=== PATIENT | female | born 1950 | race Caucasian/White ===

== ENCOUNTER 2017-08-03 13:23 | Emergency (ER) | payer OTHER, MEDICAID, MEDICARE ==
[2017-08-03] MEDS ORDERED: SODIUM CHLOR 0.9% 1000 ML INJ 1,000 ML IV (13:45)
[2017-08-03 14:27] LABS: AUTOMATED NEUTROPHIL # 3.6 TH/MM3 (1.8-7.7); BASOPHIL # 0.1 TH/MM3 (0-0.2); BASOPHIL % 0.7 % (0.0-2.0); EOSINOPHIL # 0.1 TH/MM3 (0-0.4); EOSINOPHIL % 1.2 % (0.0-4.0); HEMATOCRIT 39.5 % (35.0-46.0); HEMO FLAGS DIFF FINAL; HEMOGLOBIN 12.8 GM/DL (11.6-15.3); LYMPH % 34.4 % (9.0-44.0); LYMPHOCYTE # 2.5 TH/MM3 (1.0-4.8); MEAN CELL VOLUME 87.3 FL (80.0-100.0); MEAN CORPUSCULAR HEMOGLOBIN 28.2 PG (27.0-34.0); MEAN CORPUSCULAR HGB CONC 32.3 % (32.0-36.0); MEAN PLATELET VOLUME 9.8 FL (7.0-11.0); NEUT % 49.7 % (16.0-70.0); PLATELET COUNT 197 TH/MM3 (150-450); RED BLOOD COUNT 4.53 MIL/MM3 (4.00-5.30); RED CELL DISTRIBUTION WIDTH 17.8 % (11.6-17.2); WHITE BLOOD COUNT 7.3 TH/MM3 (4.0-11.0)
[2017-08-03] MEDS: SODIUM CHLORID 0.9% 500 ML INJ 500 ML IV ×3 (14:35→17:36)
[2017-08-03 14:38] LABS: APTT (PATIENT) 24.5 SEC (24.3-30.1); PROTHROMBIN TIME - PATIENT 10.5 SEC (9.8-11.6)
[2017-08-03 14:43] LABS: ALBUMIN 3.3 GM/DL (3.4-5.0); ALT (GPT) 15 U/L (10-53); ANION GAP 7 MEQ/L (5-15); AST (GOT) 11 U/L (15-37); BICARBONATE 25.7 MEQ/L (21.0-32.0); BLOOD UREA NITROGEN 21 MG/DL (7-18); CALCIUM 8.9 MG/DL (8.5-10.1); CHLORIDE 107 MEQ/L (98-107); CREATININE 1.23 MG/DL (0.50-1.00); GLOMERULAR FILTRATION RATE 43 ML/MIN (>89); GLUCOSE,RANDOM 97 MG/DL (74-106); MAGNESIUM 2.1 MG/DL (1.5-2.5); PHOSPHORUS 2.6 MG/DL (2.5-4.9); POTASSIUM 3.4 MEQ/L (3.5-5.1); SODIUM (NA) 140 MEQ/L (136-145)
[2017-08-03 14:44] LABS: LACTIC ACID SEPSIS PROTOCOL 2.5 mmol/L (0.4-2.0)
[2017-08-03 14:48] LABS: ALKALINE PHOSPHATASE 97 U/L (45-117); TOTAL BILIRUBIN ADULT 0.3 MG/DL (0.2-1.0); TOTAL PROTEIN 7.1 GM/DL (6.4-8.2); TROPONIN I LESS THAN 0.02 NG/ML (0.02-0.05)
[2017-08-03 14:51] LABS: CREATINE KINASE 62 U/L (26-192)
[2017-08-03 15:18] LABS: B-TYPE NATRIURETIC PEPTIDE 47 PG/ML (0-100)
[2017-08-03] MEDS: metroNIDAZOLE 500 MG INJ 100 ML IV (15:50)
[2017-08-03 16:20] LABS: LACTIC ACID GHOST NOT REPORTABLE
[2017-08-03 16:31] LABS: BILIRUBIN, URINE NEG (NEG); BLOOD, URINE NEG (NEG); GLUCOSE,URINE NEG (NEG); HYALINE CAST, URINE 8 /lpf (RARE); KETONE, URINE NEG (NEG); NITRITE,URINE NEG (NEG); SQUAMOUS EPITHELIAL CELL URINE 5 /hpf (0-5); TRANSITIONAL EPI CELLS, URINE <1 /hpf; URINE COLOR YELLOW (YELLW/STRAW); URINE LEUKOCYTE ESTERASE MOD (NEG)
[2017-08-03 16:32] LABS: BACTERIA, URINE RARE /hpf; COMMENT (UR) CATH-CULTURE IND; CULTURE IF INDICATED CATH CULTURE IND
[2017-08-03] MEDS: VANCOMYCIN INJ 1,000 MG in SODIUM CHLOR 0.9% 250 ML INJ 250 ML IV (16:56)
[2017-08-03] MEDS: AZTREONAM INJ 2,000 MG in SODIUM CHLORIDE 0.9% INJ 100 ML IV (17:46)
[2017-08-03] MEDS: SODIUM CHLOR 0.9% 1000 ML INJ 1,000 ML IV (17:59)
[2017-08-03] MEDS ORDERED: LACTULOSE SYRUP 20 GM/30 ML CUP PO (18:00)
[2017-08-03] MEDS ORDERED: SENNOSIDES 8.6 MG TAB PO (18:00)
[2017-08-03] MEDS ORDERED: BISACODYL 10 MG SUPP RECTAL (18:00)
[2017-08-03] MEDS ORDERED: NALOXONE HCL 0.4 MG/ML AMP IV PUSH (18:00)
[2017-08-03] MEDS ORDERED: ACETAMINOPHEN 325 MG TAB PO (18:00)
[2017-08-03] MEDS ORDERED: MAGNESIUM HYDROXIDE SUSP 30 ML CUP PO (18:00)
[2017-08-03] MEDS ORDERED: SODIUM CHLORIDE 0.9% FLUSH 10 ML FLUSH IV FLUSH ×2 (18:00→21:00)
[2017-08-03] MEDS ORDERED: ONDANSETRON HCL 4 MG/2 ML VIAL IVP (18:00)
[2017-08-03 18:46] LABS: LACTIC ACID SEPSIS REPEAT 1.4 mmol/L (0.4-2.0)
[2017-08-03] MEDS: HEPARIN SODIUM - SQ 10,000 UNITS/ML VIAL SQ (19:21)
[2017-08-04] MEDS ORDERED: LEVOTHYROXINE SODIUM 112 MCG TAB PO (06:00)
[2017-08-04] MEDS ORDERED: LEVOTHYROXINE SODIUM 25 MCG TAB PO (06:00)
== END 2017-08-03 19:29 | disposition left against medical advice (07) ==
LOC: NEPE 19:29 → NEDA 17:43 → NEPE 19:29
DX: A41.9 Sepsis, unspecified organism (principal); N39.0 Urinary tract infection, site not specified; I50.9 Heart failure, unspecified; I95.9 Hypotension, unspecified; R00.1 Bradycardia, unspecified; R07.9 Chest pain, unspecified
CPT/HCPCS: 70450; 71045; 80053; 81001; 82550; 83605; 83735; 83880; 84100; 84443; 84484; 85025; 85610; 85730; 87040; 87086; 93005; 96361; 96365; 96367; 99285-25